=== PATIENT | male | born 1955 | race Caucasian/White ===

== ENCOUNTER → 2023-08-18 15:22 | Outpatient (BNVA) | payer BC, MEDICARE, SELFPAY | PROVIDERS: Visit Provider Orthopaedic Surgery | DX: M54.9 Dorsalgia, unspecified (principal) | CPT/HCPCS: 72110 ==

== ENCOUNTER → 2023-08-30 14:45 | Outpatient (BNVA) | payer MEDICARE, BC, SELFPAY | PROVIDERS: Referring Provider Specialist; Visit Provider Specialist | DX: M54.9 Dorsalgia, unspecified (principal); R20.0 Anesthesia of skin; R10.30 Lower abdominal pain, unspecified; G62.89 Other specified polyneuropathies | CPT/HCPCS: 95886; 95909 ==

== ENCOUNTER → 2023-09-16 15:28 | Outpatient (BNVA) | payer MEDICARE, BC, SELFPAY | PROVIDERS: Visit Provider Specialist | DX: G62.89 Other specified polyneuropathies (principal); R10.30 Lower abdominal pain, unspecified | CPT/HCPCS: 95860; 95870; 99202 ==